=== PATIENT | male | born 1940 | race Caucasian/White ===

== ENCOUNTER 2017-06-04 08:11 | Day surgery (SDC) | payer MEDICARE, OTHER ==
[~2017-06-04 08:11] MED LIST: KETOROLAC TROMETHAMINE 0.45% 4 DROP/0.4 ML DROPERETTE OS PRN
[2017-06-04] MEDS ORDERED: PHENYLEPHRINE/KETOROLAC 1%-0.3% 4 ML VIAL ONE (08:19)
[2017-06-04] MEDS ORDERED: LIDOCAINE 1% INJ-PF (10 MG/ML) 30 ML SDV ONE (08:20)
[2017-06-04] MEDS ORDERED: CHONDR SU A NA/HYALUR INTRAOC KIT (SURGICARE) ONE (08:20)
[2017-06-04] MEDS: TROPICAMIDE 1% OPH SOLN 3 ML OS PRN ×3 (08:37→09:00)
[2017-06-04] MEDS: CYCLOPENTOLATE 0.2%/PHENYLEPHRINE 1% OPH SOLN 2 ML OS PRN ×3 (08:37→09:01)
[2017-06-04] MEDS: BESIFLOXACIN HCL 0.6% OPH SUSP 5 ML BOTTLE OS PRN ×4 (08:38→09:34)
[2017-06-04] MEDS: TETRACAINE HCL 0.5% OPH SOLN 2 ML OS PRN ×3 (08:39→09:10)
[2017-06-04] MEDS ORDERED: MIDAZOLAM 2 MG/2 ML INJ ONE (08:50)
--- NOTE | 2017-06-05 08:22 | [facility] OPERATIVE REPORT E ---
[facility] Operative Report NAME: CLIFFORD ALONSO AGE: 77Y DATE OF SURGERY: 06/04/2017 ROOM: PREOPERATIVE DIAGNOSIS: CATARACT, LEFT EYE. POSTOPERATIVE DIAGNOSIS: CATARACT, LEFT EYE. OPERATION: Cataract extraction with intraocular lens implant of the left eye. SURGEON: ROXY POLANCO M.D. ANESTHESIA: Topical. PROCEDURE: After obtaining appropriate consent, the patient's left eye was prepped and draped in sterile fashion as well as the surgeon in a sterile manner and cataract surgery was started. First a paracentesis blade was used to make a small side-port incision. Viscoelastic was used to inflate the anterior chamber. Next a 2.4 mm incision was made with the paracentesis blade. A continuous capsulorrhexis incision was made using a cystotome and Utrata forceps. Following this hydrodissection was carried out to make the lens fully loose and mobile and it was rotated 90 degrees. Following this, a mynubu-gch-gtpteno technique was used to phacoemulsify the lens with a CDE of 17.40. The remaining cortex was removed with irrigation/aspiration. Provisc was instilled into the capsular bag to inflate the bag. A SN60WF, 24.5 diopter lens was placed. The remaining viscoelastic material was removed with irrigation/aspiration. Following this, a 10-0 nylon suture was used to close the incision and it was found to be watertight. Vigamox was instilled in the eye and a protective shield was placed over the eye. The patient returned to the postoperative recovery in stable condition. DICTATING PHYSICIAN: ROXY POLANCO M.D. [id number] PHY#: [id number] ID: [id number] JOB#: [id number] ACCT: [id number] cc:ROXY POLANCO M.D. >
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
== END 2017-06-04 10:23 | disposition home or self-care (01) ==
LOC: SC 08:11
PROVIDERS: ATTEND Internal Medicine
PROC: 08RK3JZ Replacement of Left Lens with Synthetic Substitute, Percutaneous Approach (ICD-10-PCS; principal; 2017-06-04 09:30)
DX: H25.813 Combined forms of age-related cataract, bilateral (principal); H57.03 Miosis; H11.052 Peripheral pterygium, progressive, left eye; H43.813 Vitreous degeneration, bilateral; H40.033 Anatomical narrow angle, bilateral; I10 Essential (primary) hypertension; E78.00 Pure hypercholesterolemia, unspecified; E11.9 Type 2 diabetes mellitus without complications; Z79.899 Other long term (current) drug therapy; Z79.84 Long term (current) use of oral hypoglycemic drugs; Z79.82 Long term (current) use of aspirin; Z87.891 Personal history of nicotine dependence
CPT/HCPCS: 82962; 66984; V2632; J2250; J3490 ×2; A9270; C9447; 142

== ENCOUNTER 2017-06-25 06:59 | Day surgery (SDC) | payer MEDICARE ==
[~2017-06-25 06:59] MED LIST changes: +KETOROLAC TROMETHAMINE 0.45% 4 DROP/0.4 ML DROPERETTE OD PRN; -KETOROLAC TROMETHAMINE 0.45% 4 DROP/0.4 ML DROPERETTE OS PRN
[2017-06-25] MEDS ORDERED: PHENYLEPHRINE/KETOROLAC 1%-0.3% 4 ML VIAL ONE (07:24)
[2017-06-25] MEDS ORDERED: CHONDR SU A NA/HYALUR INTRAOC KIT (SURGICARE) ONE (07:25)
[2017-06-25] MEDS ORDERED: LIDOCAINE 1% INJ-PF (10 MG/ML) 30 ML SDV ONE (07:25)
[2017-06-25] MEDS: TROPICAMIDE 1% OPH SOLN 3 ML OD PRN ×3 (07:52→08:13)
[2017-06-25] MEDS: TETRACAINE HCL 0.5% OPH SOLN 2 ML OD PRN ×3 (07:52→08:31)
[2017-06-25] MEDS: CYCLOPENTOLATE 0.2%/PHENYLEPHRINE 1% OPH SOLN 2 ML OD PRN ×3 (07:52→08:13)
[2017-06-25] MEDS: BESIFLOXACIN HCL 0.6% OPH SUSP 5 ML BOTTLE OD PRN ×4 (07:53→08:48)
[2017-06-25] MEDS ORDERED: MIDAZOLAM 2 MG/2 ML INJ ONE (08:08)
[2017-06-25] MEDS ORDERED: FENTANYL CITRATE INJ/PF 100 MCG/2 ML AMPUL ONE (08:08)
--- NOTE | 2017-06-25 19:33 | [facility] OPERATIVE REPORT E ---
[facility] Operative Report NAME: CLIFFORD ALONSO AGE: 77Y DATE OF SURGERY: 06/25/2017 ROOM: PREOPERATIVE DIAGNOSIS: CATARACT, RIGHT EYE. POSTOPERATIVE DIAGNOSIS: CATARACT, RIGHT EYE. OPERATION: Cataract extraction with intraocular lens implant of the right eye. SURGEON: ROXY POLANCO M.D. ANESTHESIA: Topical. PROCEDURE: After obtaining appropriate consent, the patient's right eye was prepped and draped in sterile fashion as well as the surgeon in a sterile manner and cataract surgery was started. First a paracentesis blade was used to make a small side-port incision. Viscoelastic was used to inflate the anterior chamber. Next a 2.4 mm incision was made with the paracentesis blade. A continuous capsulorrhexis incision was made using a cystotome and Utrata forceps. Following this hydrodissection was carried out to make the lens fully loose and mobile and it was rotated 90 degrees. Following this, a snewid-pqn-uzzafmr technique was used to phacoemulsify the lens with a CDE of 27.0. The remaining cortex was removed with irrigation/aspiration. Provisc was instilled into the capsular bag to inflate the bag. A SN60WF, 25.0 diopter lens was placed. The remaining viscoelastic material was removed with irrigation/aspiration. Following this, a 10-0 nylon suture was used to close the incision and it was found to be watertight. Vigamox was instilled in the eye and a protective shield was placed over the eye. The patient returned to the postoperative recovery in stable condition. DICTATING PHYSICIAN: ROXY POLANCO M.D. [id number] PHY#: [id number] ID: [id number] JOB#: [id number] ACCT: [id number] cc:ROXY POLANCO M.D. >
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
== END 2017-06-25 09:32 | disposition home or self-care (01) ==
LOC: SC 06:59
PROVIDERS: ATTEND Internal Medicine
PROC: 08RK3JZ Replacement of Left Lens with Synthetic Substitute, Percutaneous Approach (ICD-10-PCS; principal; 2017-06-25 08:30)
DX: H25.813 Combined forms of age-related cataract, bilateral (principal); H57.03 Miosis; H11.052 Peripheral pterygium, progressive, left eye; H43.813 Vitreous degeneration, bilateral; H40.033 Anatomical narrow angle, bilateral; I10 Essential (primary) hypertension; E11.9 Type 2 diabetes mellitus without complications; Z79.84 Long term (current) use of oral hypoglycemic drugs; Z79.899 Other long term (current) drug therapy; Z79.82 Long term (current) use of aspirin
CPT/HCPCS: 66984; 82962; V2632; J2250; J3490 ×2; A9270; J3010; C9447; 142

== ENCOUNTER 2017-11-24 09:24 | Emergency (ER) | payer OTHER, MEDICARE ==
[2017-11-24] MEDS ORDERED: LIDOCAINE 1% INJ-PF (10 MG/ML) 30 ML SDV INJ ONE (10:03)
[2017-11-24] MEDS ORDERED: DIPH/PERTUSS(ACELL)/TETANUS VAC/PF 0.5 ML SYR (>=10YO) IM ONE (10:07)
--- NOTE | 2017-11-24 10:08 | ER Document Report ---
ED Hand/Wrist Injury - General Chief Complaint: Finger Injury Stated Complaint: LEFT PINKY LACERATION Time Seen by Provider: 11/24/17 09:47 Mode of Arrival: Ambulatory Information source: Patient Notes: 77-year-old male presents to ED for laceration to the left fifth finger. He states he was trying to do a screw into a wall and the drill fell off the screw screw in his hand instead causing a large laceration to the fifth finger yesterday around noon. He states he used peroxide on several times yesterday but the finger continues to bleed so he came into the emergency room. TRAVEL OUTSIDE OF THE [place] IN LAST 30 DAYS: No - HPI Injury to: Small finger Onset: Yesterday Where: Home Timing: Still present Quality of pain: Sharp Severity: Moderate Pain Level: 3 Context: Laceration - Related Data Allergies/Adverse Reactions: No Known Allergies Allergy (Verified 06/25/17 07:59) Past Medical History - General Information source: Patient - Social History Smoking Status: Never Smoker Cigarette use (# per day): No Chew tobacco use (# tins/day): No Smoking Education Provided: No Frequency of alcohol use: Heavy Drug Abuse: None Occupation: Construction Lives with: Alone Family History: Reviewed & Not Pertinent Patient has suicidal ideation: No Patient has homicidal ideation: No - Past Medical History Cardiac Medical History: Reports: Hx Hypercholesterolemia, Hx Hypertension - medicated Pulmonary Medical History: Reports: Hx Pneumonia EENT Medical History: Reports: None Neurological Medical History: Reports: None Endocrine Medical History: Reports: Hx Diabetes Mellitus Type 2 Renal/ Medical History: Reports: None Malignancy Medical History: Reports None GI Medical History: Reports: None Musculoskeltal Medical History: Reports None Skin Medical History: Reports None Psychiatric Medical History: Reports: None Traumatic Medical History: Reports: None Infectious Medical History: Reports: None Surgical Hx: Negative Past Surgical History: Reports: None Review of Systems - Review of Systems Constitutional: No symptoms reported EENT: No symptoms reported Cardiovascular: No symptoms reported Respiratory: No symptoms reported Gastrointestinal: No symptoms reported Genitourinary: No symptoms reported Male Genitourinary: No symptoms reported Musculoskeletal: No symptoms reported Skin: Other - Laceration left fifth finger Hematologic/Lymphatic: No symptoms reported Neurological/Psychological: No symptoms reported -: Yes All other systems reviewed and negative Physical Exam - Vital signs Vitals: Temp Pulse Resp BP Pulse Ox 97.8 F 90 16 130/67 H 94 11/24/17 09:29 11/24/17 09:29 11/24/17 09:29 11/24/17 09:29 11/24/17 09:29 Interpretation: Normal - General General appearance: Appears well, Alert - HEENT Head: Normocephalic, Atraumatic Eyes: Normal Pupils: PERRL - Respiratory Respiratory status: No respiratory distress Chest status: Nontender Breath sounds: Normal Chest palpation: Normal - Cardiovascular Rhythm: Regular Heart sounds: Normal auscultation Murmur: No - Abdominal Inspection: Normal Distension: No distension Bowel sounds: Normal Tenderness: Nontender Organomegaly: No organomegaly - Back Back: Normal, Nontender - Extremities General upper extremity: Normal color, Normal ROM, Normal temperature General lower extremity: Normal inspection, Nontender, Normal color, Normal ROM , Normal temperature, Normal weight bearing. No: Alex's sign Hand: Tender, Laceration - Left fifth finger, No evidence of human bite, No evidence of FB. No: Swelling - Neurological Neuro grossly intact: Yes Cognition: Normal Orientation: AAOx4 [place] Coma Scale Eye Opening: Spontaneous Risa Coma Scale Verbal: Oriented Risa Coma Scale Motor: Obeys Commands Risa Coma Scale Total: 15 Speech: Normal Motor strength normal: LUE, RUE, LLE, RLE Sensory: Normal - Psychological Associated symptoms: Normal affect, Normal mood - Skin Skin Temperature: Warm Skin Moisture: Dry Skin Color: Normal Skin irregularity: Laceration - I did then left fifth finger Course - Vital Signs Vital signs: Temp Pulse Resp BP Pulse Ox 97.6 F 90 18 124/68 94 11/24/17 11:40 11/24/17 11:40 11/24/17 11:40 11/24/17 11:40 11/24/17 11:40 Procedures - Laceration/Wound Repair Left Finger 5th digit Time completed: 11:00 Wound length (cm): 2.5 Wound's Depth, Shape: Into muscle, Irregular Laceration pre-procedure: Sterile PPE donned, Sterile drapes applied, Shur- Clens applied Anesthetic type: 1% Lidocaine Volume Anesthetic (mLs): 5 Wound explored: Contaminated Irrigated w/ Saline (mLs): 3 Wound Debrided: Minimal Wound Repaired With: Sutures Suture Size/Type: 4:0, Ethilon Number of Sutures: 7 Layer Closure?: No Post-procedure wound care: Sterile dressing applied, Splint applied Post-procedure NV exam normal: Yes Complications: No Discharge - Discharge Clinical Impression: left 5th finger laceration Condition: Stable Disposition: HOME, SELF-CARE Instructions: Family Physicians / Practices Additional Instructions: Hand Laceration A laceration on the hand can present special problems. It may be difficult to keep the wound dry. Motion of the fingers can disturb the healing edges. Your work may involve exposure to damaging chemicals or water. Keep the wound clean and dry. If you can't keep the cut dry, undisturbed, and free of chemical exposure, please discuss this with the doctor. If any water or chemical gets onto the dressing, remove it, blot the wound dry, then apply a fresh bandage. Dressings should be changed every day. If you feel the stitches pulling as you move the hand, a splint or other form of protection is needed. If any signs of infection occur (swelling, redness, increasing tenderness, red streaks, tender lumps in the armpit, or fever), see the doctor immediately. SOAP CLEANSING: Gently wash the wound daily using a mild soap (like Ivory, Phisoderm, Neutrogena). Use warm water, rubbing gently until all debris, ooze, and crusting have been washed from the wound. Allow to dry briefly (about 10 minutes) after cleaning. Repeat this cleansing at least three times a day for the first two days and then once or twice a day. ANTIBIOTIC OINTMENT PROTECTION: Your wounds are such that dressing them is not practical or optional. After cleansing, you should apply a thin coating of antibiotic ointment ( Bacitracin, not Neosporin) to the wounds at least three times daily. This lessens infection risk, and may decrease the amount of scarring. Use a q-tip or dull butter knife, not your finger, to apply this ointment. Any debris or ooze which builds up in the ointment should be gently rubbed off with a sterile gauze pad. Harder crusting may need to be gently scrubbed off with a clean wash cloth with soap and warm water, perhaps applying a warm, wet wash cloth to the wound for ten minutes first. Development of redness, severe itching, or blistering may mean allergy to the ointment. See the doctor. TETANUS IMMUNIZATION GIVEN: You have been given an immunization against tetanus. Please record this in your records. In general, a booster is needed only once every 10 years. The tetanus shot protects against tetanus or "lockjaw," which is a complication of certain wound infections (the tetanus shot cannot protect against the actual infection). The immunization site may become warm and red due to local reaction. If this occurs, apply warm compresses and take aspirin or ibuprofen to reduce inflammation and discomfort. Return for evaluation if the reaction becomes severe. Cephalexin The antibiotic you've been prescribed is a member of the cephalosporin class. This type of antibiotic covers a wide variety of infections, including those of the skin, lungs, and urinary tract. It's useful for staph infections. This antibiotic is slightly similar to the penicillin family. In rare cases , a person who is allergic to penicillin will also be allergic to this medication. If you have had a severe allergic reaction to penicillin, and have not taken this antibiotic since that time, notify your doctor. Antibiotics which cover many germs ("broad spectrum" antibiotics) are more likely to cause diarrhea or "yeast" infections. Women prone to vaginal yeast problems may suffer an attack after taking this antibiotic. In infants, oral thrush (white spots "stuck" on the cheek) or yeast diaper rash may result. See your doctor if these problems occur. Call at once if you develop itching, hives , shortness of breath, or lightheadedness. FOLLOW-UP CARE: Please return in ___3__ days for an infection check and dressing change. Your sutures should be removed in ____8_ days. To facilitate a timely removal of your sutures, you may return to the [facility]. You do not need to call for an appointment, but the best time to come in for suture removal is early in the morning. If you have been referred to another physician for follow-up care, call that physicians office for an appointment as you were instructed. If you experience a significant change in your laceration, or if you are concerned there may be an infection (swelling, redness, drainage, increasing tenderness, red streaks, tender lumps in the armpit or groin above the laceration, or fever) , return to the Emergency Department immediately re-evaluation. Prescriptions: Cephalexin Monohydrate [Keflex 500 mg Capsule] 500 mg PO Q6H 5 Days capsule Forms: Elevated Blood Pressure, Return to Work Referrals: HEIDI SEARS MD [Primary Care Provider] - Follow up as needed
[2017-11-24] MEDS ORDERED: CEPHALEXIN 500 MG CAPSULE PO ONE (11:15)
[2017-11-24 11:45] VITALS: BP 124/68
== END 2017-11-24 11:44 | disposition home or self-care (01) ==
LOC: ER 09:24
PROC: 0HQGXZZ Repair Left Hand Skin, External Approach (ICD-10-PCS; principal; 2017-11-24)
DX: S61.217A Laceration without foreign body of left little finger without damage to nail, initial encounter (principal); W26.8XXA Contact with other sharp object(s), not elsewhere classified, initial encounter; Y92.009 Unspecified place in unspecified non-institutional (private) residence as the place of occurrence of the external cause; E78.00 Pure hypercholesterolemia, unspecified; I10 Essential (primary) hypertension; E11.9 Type 2 diabetes mellitus without complications; Z23 Encounter for immunization
CPT/HCPCS: 99283; 90471; 90715; 12001; J3490

== ENCOUNTER 2017-12-01 09:05 | Emergency (ER) | payer OTHER, MEDICARE ==
[2017-12-01 09:18] VITALS: BP 128/71
--- NOTE | 2017-12-01 09:31 | ER Document Report ---
ED General - General Chief Complaint: Suture Removal Stated Complaint: SUTURE REMOVAL Time Seen by Provider: 12/01/17 09:27 Mode of Arrival: Ambulatory Information source: Patient Notes: 77-year-old male presents with laceration of the fifth digit left hand approximately 7 days ago. 7 sutures were placed at that time, patient presents for removal of sutures and wound recheck TRAVEL OUTSIDE OF THE [place] IN LAST 30 DAYS: No - HPI Onset: Last week Onset/Duration: Better Quality of pain: No pain Severity: None Pain Level: Denies Associated symptoms: None Exacerbated by: Denies Relieved by: Denies Similar symptoms previously: Yes Recently seen / treated by doctor: Yes - Related Data Allergies/Adverse Reactions: No Known Allergies Allergy (Verified 12/01/17 09:07) Past Medical History - Social History Smoking Status: Former Smoker Cigarette use (# per day): No Chew tobacco use (# tins/day): No Smoking Education Provided: No Frequency of alcohol use: None Drug Abuse: None Family History: Reviewed & Not Pertinent Patient has suicidal ideation: No Patient has homicidal ideation: No - Past Medical History Cardiac Medical History: Reports: Hx Hypercholesterolemia, Hx Hypertension - medicated Denies: Hx Heart Attack Pulmonary Medical History: Reports: Hx Pneumonia Denies: Hx Asthma Neurological Medical History: Denies: Hx Seizures Endocrine Medical History: Reports: Hx Diabetes Mellitus Type 2 Renal/ Medical History: Denies: Hx Peritoneal Dialysis GI Medical History: Denies: Hx Hiatal Hernia, Hx Ulcer Past Surgical History: Denies: Hx Open Heart Surgery Review of Systems - Review of Systems Notes: REVIEW OF SYSTEMS: CONSTITUTIONAL : Denies fever, chills, or sweats. Denies recent illness. EENT: Denies eye, ear, throat, or mouth pain or symptoms. Denies nasal or sinus congestion or discharge. Denies throat, tongue, or mouth swelling or difficulty swallowing. CARDIOVASCULAR: Denies chest pain. Denies palpitations or racing or irregular heart beat. Denies ankle edema. RESPIRATORY: Denies cough, cold, or chest congestion. Denies shortness of breath, difficulty breathing, or wheezing. GASTROINTESTINAL: Denies abdominal pain or distention. Denies nausea, vomiting , or diarrhea. Denies blood in vomitus, stools, or per rectum. Denies black, tarry stools. Denies constipation. GENITOURINARY: Denies difficulty urinating, painful urination, burning, frequency, blood in urine, or discharge. MUSCULOSKELETAL: Denies back or neck pain or stiffness. Denies joint pain or swelling. SKIN: wound recheck HEMATOLOGIC : Denies easy bruising or bleeding. LYMPHATIC: Denies swollen, enlarged glands. NEUROLOGICAL: Denies confusion or altered mental status. Denies passing out or loss of consciousness. Denies dizziness or lightheadedness. Denies headache. Denies weakness or paralysis or loss of use of either side. Denies problems with gait or speech. Denies sensory loss, numbness, or tingling. Denies seizures. PSYCHIATRIC: Denies anxiety or stress. Denies depression, suicidal ideation, or homicidal ideation. ALL OTHER SYSTEMS REVIEWED AND NEGATIVE. Dictation was performed using [employer] voice recognition software PHYSICAL EXAMINATION: GENERAL: Well-appearing, well-nourished and in no acute distress. HEAD: Atraumatic, normocephalic. EYES: Pupils equal round extraocular movements intact, conjunctiva are normal. ENT: Nares patent NECK: Normal range of motion LUNGS: No respiratory distress Musculoskeletal: Normal range of motion NEUROLOGICAL: Normal speech, normal gait. PSYCH: Normal mood, normal affect. SKIN: [address] on left hand fifth digit, no secondary sign of infection. pt has full rom of the digit, normal sensation and motor function Physical Exam - Vital signs Vitals: Temp Pulse Resp BP Pulse Ox 97.8 F 82 16 128/71 H 96 18 09:16 12/01/17 09:16 12/01/17 09:16 12/01/17 09:16 12/01/17 09:16 Course - Vital Signs Vital signs: Temp Pulse Resp BP Pulse Ox 97.8 F 82 16 128/71 H 96 18 09:16 12/01/17 09:16 12/01/17 09:16 12/01/17 09:16 12/01/17 09:16 Procedures - Immobilization Right 5th digit Time completed: 09:39 Pre-Proc Neuro Vasc Exam: Normal Immobilizer type: Finger splint (Static) Performed by: RN Post-Proc Neuro Vasc Exam: Normal Alignment checked and good: Yes - Additional Procedures suture removal Time performed: 09:43 - removed 7 sutures no complicaiton, no drainage Discharge - Discharge Clinical Impression: Visit for suture removal, Encounter for wound re-check Condition: Stable Disposition: HOME, SELF-CARE Additional Instructions: You wound today looks well, please keep the splint in place so you did not open up the laceration, return immediately if there is any sign of infection or any other concerns
== END 2017-12-01 09:45 | disposition home or self-care (01) ==
LOC: ER 09:05
DX: S61.217D Laceration without foreign body of left little finger without damage to nail, subsequent encounter (principal); X58.XXXD Exposure to other specified factors, subsequent encounter; Z87.891 Personal history of nicotine dependence; E11.9 Type 2 diabetes mellitus without complications; I10 Essential (primary) hypertension